=== PATIENT | male | born 1945 | race Caucasian/White ===

== ENCOUNTER 2016-08-11 16:33 | Observation (INO) | payer MEDICARE, BC, OTHER ==
[~2016-08-11] VITALS: Ht 185.4 cm; Wt 114.0 kg
[2016-08-11] VITALS (8 sets, daily range): BP systolic 139–188; BP diastolic 79–105; PULSE 60–86; RESP 16–20; TEMP 97.8–98.1; O2SAT 93–99
[~2016-08-11 16:33] MED LIST: ALLO300 PO; ASCO500C PO; BENI40TA31 PO; CARV3.125 PO; CPAP; LIPI40TA PO; PROT40TA PO; TAB-TAB PO; [UNRECOGNIZED DRUG - CODE] PO
[2016-08-11] MEDS ORDERED: ASPIRIN 81 MG CHEW TAB PO ONE (16:45)
[2016-08-11] MEDS: METOPROLOL TARTRATE 5 MG/5 ML VIAL IVS SCH ×4 (16:45→17:14)
[2016-08-11] MEDS ORDERED: NITROGLYCERIN 2% OINT 1 GM PACKET TOP ONE (16:45)
[2016-08-11] MEDS ORDERED: SODIUM CHLORIDE 0.9% FLUSH 5 ML FLUSH IVF PRN ×2 (16:45→18:30)
--- NOTE | 2016-08-11 16:54 | PD ---
HPI . Chest and upper back pain Chief Complaint: Chest Pain Time Seen by Provider: 16:42 Travel History International Travel<30 days: No Contact w/Intl Traveler<30days: No Traveled to known affect area: No History of Present Illness HPI Patient presents with chest and upper back pain which has been present for 1-1/2 -2 weeks. He states that it started after he had done some heavy yard work. He felt that it was muscular. He took ibuprofen with some relief of his symptoms. However, the symptoms have persisted and are no longer relieved by ibuprofen. He states that he has chest discomfort on a daily basis which waxes and wanes but does not go completely away. He also has pain in his upper back. He describes the upper back and upper chest pain as soreness but he describes the retrosternal chest pain is a heaviness. He denies any associated shortness of breath. He denies nausea, diaphoresis, paleness, dizziness. He does report poor appetite. He notes no exacerbating or relieving factors. PFSH Past Medical History Hx Anticoagulant Therapy: No Arthritis: Yes (HANDS, FEET, KNEES) Cardiovascular Problems: Yes (HTN, hyperlipidemia) High Cholesterol: Yes Chemotherapy: No Congestive Heart Failure: No COPD: Yes Cerebrovascular Accident: No Diabetes: No GERD: Yes Gout: Yes Genitourinary: No Hypertension: Yes Musculoskeletal: Yes Neurologic: No Respiratory: No Sleep Apnea: Yes Thyroid Disease: No Past Surgical History Abdominal Surgery: Yes (HERNIA REPAIR 49 YRS AGO) Oral Surgery: Yes (TONSILLECTOMY A CHILD) Social History Alcohol Use: Yes (SOCIALLY) Tobacco Use: No Substance Use: No Allergies-Medications (Allergen,Severity, Reaction): Coded Allergies: No Known Allergies (Verified , 01/17/14) Reported Meds & Prescriptions Reported Meds & Active Scripts Active Reported Vitamin E 400 Unit Cap 400 Units PO DAILY Multiple Vitamin 1 Tab 1 Tab PO DAILY Aspirin 325 Mg Tab 325 Mg PO DAILY Protonix (Pantoprazole Sodium) 40 Mg Tab 40 Mg PO EVERY OTHER DAY Benicar Hct (Olmesartan-Hydrochlorothiazide) 40-12.5 mg Tab 1 Tab PO DAILY Coreg (Carvedilol) 3.125 Mg Tab 3.125 Mg PO BID Lipitor (Atorvastatin Calcium) 40 Mg Tab 40 Mg PO HS Ascorbic Acid 500 Mg Tab 500 Mg PO DAILY Allopurinol 300 Mg Tab 300 Mg PO DAILY Review of Systems Except as stated in HPI: all other systems reviewed are Neg General / Constitutional: No: Fever, Chills Cardiovascular: Positive: Chest Pain or Discomfort, No: Diaphoresis, Syncope, Edema Respiratory: No: Cough, Shortness of Breath Gastrointestinal: No: Nausea, Vomiting, Diarrhea Neurologic: No: Weakness, Dizziness, Syncope Physical Exam Narrative GENERAL: This is a healthy-appearing older man who does not appear to be in distress. SKIN: Warm and dry. HEAD: Atraumatic. Normocephalic. EYES: Pupils equal and round. ENT: No nasal bleeding or discharge. Mucous membranes pink and moist. NECK: Trachea midline. Neck is supple. CARDIOVASCULAR: Regular rate and rhythm. Heart sounds are normal. RESPIRATORY: No accessory muscle use. Lungs are clear with full air movement throughout. GASTROINTESTINAL: Abdomen soft, non-tender, nondistended. MUSCULOSKELETAL: No obvious deformities. No edema. I am unable to elicit any upper chest or upper back tenderness. NEUROLOGICAL: Awake and alert. No obvious cranial nerve deficits. Motor grossly within normal limits. Normal speech. PSYCHIATRIC: Appropriate mood and affect; insight and judgment normal. Data Data Last Documented VS Vital Signs Date Time Temp Pulse Resp B/P Pulse Ox O2 Delivery O2 Flow Rate FiO2 08/11/16 17:25 60 16 139/84 95 Nasal Cannula 2 08/11/16 16:39 97.8 Orders Ckmb (Isoenzyme) Profile (08/11/16 16:42) Complete Blood Count With Diff (08/11/16 16:42) Comprehensive Metabolic Panel (08/11/16 16:42) Magnesium (Mg) (08/11/16 16:42) Prothrombin Time / Inr (Pt) (08/11/16 16:42) Act Partial Throm Time (Ptt) (08/11/16 16:42) Troponin I (08/11/16 16:42) Chest, Single Ap (08/11/16 16:42) Ecg Monitoring (08/11/16 16:42) Bilateral Bp Monitoring (08/11/16 16:42) Iv Access Insert/Monitor (08/11/16 16:42) Oximetry (08/11/16 16:42) Oxygen Administration (08/11/16 16:42) Aspirin Chew (Aspirin Chew) (08/11/16 16:45) Nitroglycerin 2% Oint (Nitroglycerin 2% (08/11/16 16:45) Sodium Chloride 0.9% Flush (Ns Flush) (08/11/16 16:45) Metoprolol Tartrate Inj (Lopressor Inj) (08/11/16 16:45) Morphine Inj (Morphine Inj) (08/11/16 17:45) Ondansetron Inj (Zofran Inj) (08/11/16 17:45) Admit Order (Ed Use Only) (08/11/16 18:18) Labs Laboratory Tests Test 08/11/16 17:00 White Blood Count 6.4 TH/MM3 Red Blood Count 4.53 MIL/MM3 Hemoglobin 14.1 GM/DL Hematocrit 41.1 % Mean Corpuscular Volume 90.7 FL Mean Corpuscular Hemoglobin 31.1 PG Mean Corpuscular Hemoglobin 34.3 % Concent Red Cell Distribution Width 13.2 % Platelet Count 245 TH/MM3 Mean Platelet Volume 9.1 FL Neutrophils (%) (Auto) 60.1 % Lymphocytes (%) (Auto) 28.5 % Monocytes (%) (Auto) 7.3 % Eosinophils (%) (Auto) 3.5 % Basophils (%) (Auto) 0.6 % Neutrophils # (Auto) 3.9 TH/MM3 Lymphocytes # (Auto) 1.8 TH/MM3 Monocytes # (Auto) 0.5 TH/MM3 Eosinophils # (Auto) 0.2 TH/MM3 Basophils # (Auto) 0.0 TH/MM3 CBC Comment DIFF FINAL Differential Comment Prothrombin Time 10.5 SEC Prothromb Time International 1.0 RATIO Ratio Activated Partial 25.7 SEC Thromboplast Time Sodium Level 141 MEQ/L Potassium Level 4.0 MEQ/L Chloride Level 105 MEQ/L Carbon Dioxide Level 25.8 MEQ/L Anion Gap 10 MEQ/L Blood Urea Nitrogen 26 MG/DL Creatinine 0.87 MG/DL Estimat Glomerular Filtration 86 ML/MIN Rate Random Glucose 92 MG/DL Calcium Level 9.3 MG/DL Magnesium Level 1.7 MG/DL Total Bilirubin 0.7 MG/DL Aspartate Amino Transf 14 U/L (AST/SGOT) Alanine Aminotransferase 26 U/L (ALT/SGPT) Alkaline Phosphatase 84 U/L Total Creatine Kinase 60 U/L Troponin I LESS THAN 0.02 NG/ML Total Protein 7.4 GM/DL Albumin 4.0 GM/DL MDM Medical Decision Making Medical Screen Exam Complete: Yes Emergency Medical Condition: Yes Medical Record Reviewed: Yes (patient had a Lexiscan stress test in January 2014 which was negative.) Interpretation(s) EKG shows a sinus rhythm. No ST segment elevation or depression. Differential Diagnosis Differential diagnosis of chest pain includes but is not limited to musculoskeletal pain, pulmonary embolism, acute coronary syndrome, pneumonia, pleurisy Narrative Course Patient presents for the evaluation of chest pain which has been ongoing for approximately 2 weeks. He does state that it waxes and wanes. If this patient's initial evaluation is negative, he needs to be further evaluated in the chest pain center. Last Impressions Chest X-Ray 08/11/16 1642 Signed Impressions: Service Date/Time: Thursday, August 11, 2016 16:50 - CONCLUSION: Normal examination. Dilan Avalos MD The chest x-ray was independently viewed by me. CBC & BMP Diagram 08/11/16 17:00 Cardiac enzymes are negative. Patient reports that his pain is significantly improved with aspirin, oxygen and Nitropaste. I will have him admitted to the chest pain center. Diagnosis Primary Impression: Chest pain Qualified Code: R07.9 - Chest pain, unspecified type Admitting Information Admitting Physician Requests: Observation Condition: Stable Carito Barney MD Aug 11, 2016 16:53
--- NOTE | 2016-08-11 16:58 | RADHPO ---
EXAM DATE/TIME: 08/11/2016 16:50 [facility] COMPARISON: CHEST SINGLE AP, January 16, 2014, 23:33. INDICATIONS : Chest pain for two weeks. No injury. MEDICAL HISTORY : Hypertension. SURGICAL HISTORY : None. ENCOUNTER: Initial ACUITY: 2 weeks PAIN SCORE: 5/10 LOCATION: Bilateral upper chest FINDINGS: A single view of the chest demonstrates the lungs to be symmetrically aerated without evidence of mas s, infiltrate or effusion. The cardiomediastinal contours are unremarkable. Osseous structures are intact. CONCLUSION: Normal examination. Dilan Avalos MD on August 11, 2016 at 16:57 Board Certified Radiologist. This report was verified electronically.
[2016-08-11 17:06] LABS: AUTOMATED NEUTROPHIL # 3.9 TH/MM3 (1.8-7.7); BASOPHIL % 0.6 % (0.0-2.0); EOSINOPHIL # 0.2 TH/MM3 (0-0.4); EOSINOPHIL % 3.5 % (0.0-4.0); HEMATOCRIT 41.1 % (39.0-51.0); HEMO FLAGS DIFF FINAL; LYMPH % 28.5 % (9.0-44.0); LYMPHOCYTE # 1.8 TH/MM3 (1.0-4.8); MEAN CELL VOLUME 90.7 FL (80.0-100.0); MEAN CORPUSCULAR HEMOGLOBIN 31.1 PG (27.0-34.0); MEAN CORPUSCULAR HGB CONC 34.3 % (32.0-36.0); MONO % 7.3 % (0.0-8.0); NEUT % 60.1 % (16.0-70.0); PLATELET COUNT 245 TH/MM3 (150-450); RED BLOOD COUNT 4.53 MIL/MM3 (4.50-5.90); RED CELL DISTRIBUTION WIDTH 13.2 % (11.6-17.2); WHITE BLOOD COUNT 6.4 TH/MM3 (4.0-11.0)
[2016-08-11 17:15] LABS: CHLORIDE 105 MEQ/L (98-107); SODIUM (NA) 141 MEQ/L (136-145)
[2016-08-11 17:19] LABS: ANION GAP 10 MEQ/L (5-15); BICARBONATE 25.8 MEQ/L (21.0-32.0); BLOOD UREA NITROGEN 26 MG/DL (7-18); MAGNESIUM 1.7 MG/DL (1.5-2.5)
[2016-08-11 17:20] LABS: APTT (PATIENT) 25.7 SEC (24.3-30.1); PROTHROMBIN TIME - PATIENT 10.5 SEC (9.8-11.6)
[2016-08-11 17:22] LABS: ALT (GPT) 26 U/L (12-78); AST (GOT) 14 U/L (15-37)
[2016-08-11 17:23] LABS: GLOMERULAR FILTRATION RATE 86 ML/MIN (>89)
[2016-08-11 17:24] LABS: TOTAL BILIRUBIN ADULT 0.7 MG/DL (0.2-1.0)
[2016-08-11 17:25] LABS: ALKALINE PHOSPHATASE 84 U/L (45-117)
[2016-08-11 17:34] LABS: CREATINE KINASE 60 U/L (39-308)
[2016-08-11] MEDS ORDERED: ONDANSETRON HCL 4 MG/2 ML VIAL IVP ONE (17:45)
[2016-08-11] MEDS ORDERED: MORPHINE SULFATE 4 MG/ML INJ IV ONE (17:45)
[2016-08-11] MEDS ORDERED: ALLO300T2 PO (18:00)
[2016-08-11] MEDS ORDERED: ASCO500T PO (18:01)
[2016-08-11] MEDS ORDERED: CARV3.125 PO (18:03)
[2016-08-11] MEDS ORDERED: LIPI40TA PO (18:03)
[2016-08-11] MEDS ORDERED: BENI40TA5 PO (18:04)
[2016-08-11] MEDS ORDERED: PROT40TA PO (18:05)
[2016-08-11] MEDS ORDERED: MULTTAB67 PO (18:06)
[2016-08-11] MEDS ORDERED: ASPI325T PO (18:06)
[2016-08-11] MEDS ORDERED: VITA400C2 PO (18:07)
[2016-08-11] MEDS ORDERED: ONDANSETRON HCL 4 MG/2 ML VIAL IV PRN (18:30)
[2016-08-11] MEDS ORDERED: ACETAMINOPHEN 500 MG CPLT PO PRN (18:30)
[2016-08-11 20:42] LABS: CREATINE KINASE 52 U/L (39-308)
[2016-08-11] MEDS ORDERED: ATORVASTATIN 40 MG TAB PO SCH (21:00)
[2016-08-11] MEDS: CARVEDILOL 3.125 MG TAB PO SCH (22:00)
[2016-08-11] MEDS: SODIUM CHLORIDE 0.9% FLUSH 5 ML FLUSH IVF SCH (22:00)
[2016-08-11 23:11] LABS: CREATINE KINASE 53 U/L (39-308)
[2016-08-12] VITALS: BP 137/99; PULSE 88; RESP 20; TEMP 98.4; O2SAT 95
[2016-08-12 04:00] VITALS: BP 151/87; PULSE 69; RESP 20; TEMP 97.6; O2SAT 93
[2016-08-12 07:30] VITALS: O2SAT 92
[2016-08-12 08:00] VITALS: BP 148/89; PULSE 59; PULSE 69; RESP 20; TEMP 97; O2SAT 94
[2016-08-12] MEDS: CARVEDILOL 3.125 MG TAB PO SCH (09:00)
[2016-08-12] MEDS ORDERED: PANTOPRAZOLE SOD 40 MG DELAYED RELEASE TAB PO SCH (09:00)
[2016-08-12] MEDS ORDERED: HYDROCHLOROTHIAZIDE 12.5 MG CAP PO SCH (09:00)
[2016-08-12] MEDS ORDERED: LOSARTAN 50 MG TAB PO SCH (09:00)
[2016-08-12] MEDS ORDERED: ALLOPURINOL 300 MG TAB PO SCH (09:00)
[2016-08-12] MEDS ORDERED: ASPIRIN 325 MG TAB PO SCH (09:00)
[2016-08-12] MEDS: SODIUM CHLORIDE 0.9% FLUSH 5 ML FLUSH IVF SCH (09:09)
--- NOTE | 2016-08-12 10:15 | EKG ---
Date Performed: 08/11/2016 Time Performed: 22:16:08 PTAGE: 71 years EKG: Sinus rhythm with PAC(s). Left axis deviation rSr'(V1) - probable normal variant Possible anterior infarct - age undetermined Abnormal ECG PREVIOUS TRACING : 08/11/2016 19.53 DOCTOR: Dilan Edge Interpretating Date/Time 08/12/2016 10:13:43
--- NOTE | 2016-08-12 10:40 | EKG ---
Date Performed: 08/11/2016 Time Performed: 19:53:28 PTAGE: 71 years EKG: Sinus rhythm . Leftward axis rSr'(V1) - probable normal variant Poor R wave progression - probable normal variant Anterior T wave changes are nonspecific Borderline ECG PREVIOUS TRACING : 08/11/2016 16.33 DOCTOR: Dilan Edge Interpretating Date/Time 08/12/2016 10:39:43
--- NOTE | 2016-08-12 10:42 | HHI.HP ---
[facility] Service [facility] Primary Care Physician Shanelle Alva M.D. Admission Diagnosis chest pain Diagnoses: (1) Chest pain Diagnosis: Principal (2) Hypertension Diagnosis: Secondary (3) Hyperlipidemia Diagnosis: Secondary (4) Family history of heart disease Diagnosis: Secondary Chief Complaint: Chest pain Travel History International Travel<30 Days: No Contact w/Intl Traveler <30 Da: No Traveled to Known Affected Are: No History of Present Illness 71-year-old male with known history of hypertension, hyperlipidemia, obstructive sleep apnea, gastroesophageal reflux, history of tobacco use presents for evaluation of chest pain. Patient states that he been experiencing upper anterior chest pain radiating over her shoulders into his back for 1-1/2 weeks. States that the pain started after he cut down a tree. He did use ibuprofen for the first 3 days with minimal relief. The pain has remained constant up to a 5/10 on a pain scale without any associated nausea, vomiting, diaphoresis, shortness of breath, dyspnea, dizziness. Patient did not attempt to contact his real estate branch manager or primary medical doctor for evaluation. Because the pain did not go away he came to emergency department for evaluation. Patient workup done emergency department is recommended patient be observed and chest pain center for further evaluation. Patient's primary real estate branch manager Dr. Barrow. He states that he has not seen his real estate branch manager since his last time he was admitted to the hospital for chest pain center back in 2013. Will need contact patient's real estate branch manager for further recommendations. Review of Systems Constitutional: DENIES: Diaphoretic episodes, Fatigue, Fever, Weight gain, Weight loss, Chills, Dizziness, Change in appetite, Night Sweats Eyes: DENIES: Blurred vision, Diplopia, Eye inflammation, Eye pain, Vision loss , Double Vision Ears, nose, mouth, throat: DENIES: Vertigo, Nasal discharge, Throat pain, Ear Pain, Running Nose, Sinus Pain Respiratory: DENIES: Apneas, Cough, Snoring, Wheezing, Hemoptysis, Sputum production, Shortness of breath Cardiovascular: COMPLAINS OF: Chest pain, DENIES: Palpitations, Syncope, Dyspnea on Exertion, Lower Extremity Edema, Orthopnea Gastrointestinal: DENIES: Abdominal pain, Black stools, Bloody stools, Constipation, Diarrhea, Nausea, Vomiting, Difficulty Swallowing, Anorexia Neurologic: DENIES: Abnormal gait, Headache, Localized weakness, Paresthesias, Seizures, Speech Problems, Tremor, Poor Balance Psychiatric: COMPLAINS OF: Homicidal Ideation, DENIES: Anxiety, Confusion, Mood changes, Depression Past Family Social History Past Medical History Hypertension Hyperlipidemia Obstructive sleep apnea Gastroesophageal reflux History tobacco use Past Surgical History Tonsillectomy Right inguinal hernia repair Reported Medications Reported Meds & Active Scripts Active Reported Vitamin E 400 Unit Cap 400 Units PO DAILY Multiple Vitamin 1 Tab 1 Tab PO DAILY Aspirin 325 Mg Tab 325 Mg PO DAILY Protonix (Pantoprazole Sodium) 40 Mg Tab 40 Mg PO EVERY OTHER DAY Benicar Hct (Olmesartan-Hydrochlorothiazide) 40-12.5 mg Tab 1 Tab PO DAILY Coreg (Carvedilol) 3.125 Mg Tab 3.125 Mg PO BID Lipitor (Atorvastatin Calcium) 40 Mg Tab 40 Mg PO HS Ascorbic Acid 500 Mg Tab 500 Mg PO DAILY Allopurinol 300 Mg Tab 300 Mg PO DAILY Allergies: Coded Allergies: No Known Allergies (Verified , 01/17/14) Family History Patient states that his father from myocardial infarction Social History Patient was smoking 18 years ago prior to that he smoked 2 packs of cigarettes a day for 20 years. Denies any illicit drugs. Does use alcohol occasionally Physical Exam Vital Signs Vital Signs Date Time Temp Pulse Resp B/P Pulse Ox O2 Delivery O2 Flow Rate FiO2 08/12/16 08:00 69 08/12/16 08:00 97.0 59 20 148/89 94 08/12/16 07:30 92 Nasal Cannula 2.00 08/12/16 04:00 97.6 69 20 151/87 93 08/12/16 00:00 98.4 88 20 137/99 95 Manual Cuff/Auscultation 08/11/16 22:21 95 Nasal Cannula 2.00 08/11/16 20:16 66 08/11/16 20:15 98.1 63 20 153/86 99 08/11/16 20:12 18 96 Nasal Cannula 2 08/11/16 19:00 64 18 96 Nasal Cannula 2 08/11/16 19:00 64 18 145/79 96 Nasal Cannula 2 08/11/16 17:25 60 16 139/84 95 Nasal Cannula 2 08/11/16 17:19 60 97 Nasal Cannula 2 08/11/16 16:39 97.8 86 18 183/105 93 08/11/16 16:33 95 Nasal Cannula 2 08/11/16 16:33 183/105 188/102 08/11/16 16:33 18 95 Nasal Cannula 2 Physical Exam GENERAL: Well-developed, well-nourished, in no acute distress. alert and orientated HEENT: Head is normocephalic without any lesions or masses noted. Facial features are symmetric. Eyes: Pupils equal round reactive to light. Extraocular muscles are intact. Conjunctivae were clear. Oropharyngeal: Pharynx without any erythema edema. Tongue is midline without deviation. Buccal mucosa is moist without any masses or lesions NECK: Supple without any masses. Trachea midline no deviation. No JVD, no bruits are appreciated CARDIAC: Regular rhythm, regular rate. S1/S2 are heard. No murmurs gallops or rubs. LUNGS: Clear to auscultation bilaterally. No wheeze, rhonchi or rales. No use of accessory muscles on inspiration or expiration. ABDOMEN: Soft, nontender. Nondistended. Bowel sounds heard in all 4 quadrants. No organomegaly or masses. Negative rebound, negative guarding EXTREMITIES: No edema, pulses are equal bilaterally. No cyanosis or clubbing NEUROLOGY: Mood and affect appear appropriate. Cranial nerves II through XII grossly intact. Muscle strength 5/5 in upper and lower extremities bilaterally. Deep tendon reflexes are 2+ in upper and lower extremities bilaterally. Laboratory Laboratory Tests Test 08/11/16 08/11/16 08/11/16 17:00 19:55 22:25 White Blood Count 6.4 Red Blood Count 4.53 Hemoglobin 14.1 Hematocrit 41.1 Mean Corpuscular Volume 90.7 Mean Corpuscular Hemoglobin 31.1 Mean Corpuscular Hemoglobin 34.3 Concent Red Cell Distribution Width 13.2 Platelet Count 245 Mean Platelet Volume 9.1 Neutrophils (%) (Auto) 60.1 Lymphocytes (%) (Auto) 28.5 Monocytes (%) (Auto) 7.3 Eosinophils (%) (Auto) 3.5 Basophils (%) (Auto) 0.6 Neutrophils # (Auto) 3.9 Lymphocytes # (Auto) 1.8 Monocytes # (Auto) 0.5 Eosinophils # (Auto) 0.2 Basophils # (Auto) 0.0 CBC Comment DIFF FINAL Differential Comment Prothrombin Time 10.5 Prothromb Time International 1.0 Ratio Activated Partial 25.7 Thromboplast Time Sodium Level 141 Potassium Level 4.0 Chloride Level 105 Carbon Dioxide Level 25.8 Anion Gap 10 Blood Urea Nitrogen 26 Creatinine 0.87 Estimat Glomerular Filtration 86 Rate Random Glucose 92 Calcium Level 9.3 Magnesium Level 1.7 Total Bilirubin 0.7 Aspartate Amino Transf 14 (AST/SGOT) Alanine Aminotransferase 26 (ALT/SGPT) Alkaline Phosphatase 84 Total Creatine Kinase 60 52 53 Troponin I LESS THAN 0.02 LESS THAN 0.02 LESS THAN 0.02 Total Protein 7.4 Albumin 4.0 Result Diagram: 08/11/16 1700 08/11/16 1700 Imaging Last Impressions Chest X-Ray 08/11/16 1642 Signed Impressions: Service Date/Time: Thursday, August 11, 2016 16:50 - CONCLUSION: Normal examination. Dilan Avalos MD Assessment and Plan Assessment and Plan Chest pain, atypical Patient with increased risk factors to include age, male, hypertension, hyperlipidemia, tobacco use, family history of heart disease Patient has been ruled out for acute coronary event with serial cardiac enzymes were normal Serial EKGs were performed which did not indicate any significant changes. Telemetry was monitored without any changes. We'll try to contact patient's real estate branch manager Dr. Grace andrea for further recommendations Continue aspirin, beta arsalan, statin, ARB Hypertension Continued home medications Hyperlipidemia Continued home medications Obstructive sleep apnea Patient is using his own CPAP DVT prevention Low risk, early ambulation Written by Jayden Vergara PA-C, acting as scribe for Dr. García on 08/12/16 at 1020. The documentation accurately reflects the work and decisions performed face-to- face by Dr. Joseph on 08/12/16 at 1020. Discharge disposition Discharge home in stable condition Activity: Ad yesenia. Diet: Healthy heart diet Medications per medication reconciliation Follow-up primary medical doctor in one week Medical Decision Making Impression and Plan Patient with atypical chest pain and risk factors, follow-up imaging/ stress test The exam, history, and the medical decision-making described in the above note were completed with my assistance as the dictating practitioner. I attest that I had a [id number] encounter with the patient on the same day, and personally performed all of the history, exam, or medical decision making. I reviewed and agree with the plan. Problem Qualifiers (1) Chest pain: Qualified Code: R07.9 - Chest pain, unspecified type (2) Hypertension: Qualified Code: I15.9 - Secondary hypertension (3) Hyperlipidemia: Qualified Code: E78.5 - Hyperlipidemia, unspecified hyperlipidemia type Jayden Vergara Aug 12, 2016 10:42 Genesis García MD Aug 12, 2016 14:16
--- NOTE | 2016-08-12 11:06 | EKG ---
Date Performed: 08/11/2016 Time Performed: 16:33:52 PTAGE: 71 years EKG: Possible ectopic atrial rhythm. Left axis deviation rSr'(V1) - probable normal variant Poss ible anterior infarct - age undetermined Abnormal ECG PREVIOUS TRACING : 01/17/2014 05.19 DOCTOR: Dilna Edge Interpretating Date/Time 08/12/2016 11:03:55
[2016-08-12 12:00] VITALS: BP 139/85; PULSE 58; RESP 20; TEMP 97.1; O2SAT 96
[2016-08-12] MEDS ORDERED: REGADENOSON INJ 0.4 MG/5 ML SYR IV ONE (13:38)
--- NOTE | 2016-08-12 15:23 | RADHPO ---
EXAM DATE/TIME: 08/12/2016 13:58 [facility] COMPARISON: MYOCARDIAL PERF PHARM SPECT, GATED W/EF, January 17, 2014, 10:37. INDICATIONS : Substernal chest pain radiating to back. Angina. DOSE: 35 mCi Tc99m Myoview at stress. 11 mCi Tc99m Myoview at rest. 0.4 mg Lexiscan STRESS SYMPTOMS: Asymptomatic. EJECTION FRACTION: 70% MEDICAL HISTORY : Hypertension. Gastroesophageal reflux disease. SURGICAL HISTORY : Inguinal hernia repair. Tonsillectomy. ENCOUNTER: Initial ACUITY: 1 week PAIN SCALE: 5/10 LOCATION: Substernal chest TECHNIQUE: The patient underwent pharmacologic stress with infusion of prescribed dose. Continuous ECG tracing was monitored during stress. Gated SPECT imaging was performed after stress and conventional SPECT i maging was performed at rest. The examination was performed on a SPECT/CT scanner, both attenuation and non-corrected datasets were reviewed. FINDINGS: DISTRIBUTION: The maximum perfused segment at stress is in the septal wall. PERFUSION STUDY: The pattern of perfusion at stress is within normal limits. GATED STUDY: There is intact wall motion and thickening without hypokinetic or dyskinetic segments. CONCLUSION: 1. No reversible perfusion defect to suggest stress-induced myocardial ischemia identified. RISK CATEGORY: Low (<1% Annual Mortality Rate) Oscar Kumar MD on August 12, 2016 at 15:21 Board Certified Radiologist. This report was verified electronically.
--- NOTE | 2016-08-12 15:30 | HHI.DCPOC ---
Discharge Care Plan Diagnosis: (1) Chest pain Goals to Promote Your Health * To prevent worsening of your condition and complications * To maintain your health at the optimal level Directions to Meet Your Goals Take your medications as prescribed Follow your dietary instruction Follow activity as directed Keep your appointments as scheduled Take your immunizations and boosters as scheduled If your symptoms worsen call your PCP, if no PCP go to Urgent Care Center or Emergency Room Smoking is Dangerous to Your Health. Avoid second hand smoke Call the 24-hour hour crisis hotline for domestic abuse at Jayden Vergara Aug 12, 2016 15:30 Genesis García MD Aug 12, 2016 16:46
--- NOTE | 2016-08-13 21:33 | TR ---
Date Performed: 08/12/2016 Time Performed: 14:02:39 DOCTOR: Jessica Rosas DRUG LIST: CLINICAL HISTORY: CHEST PAIN REASON FOR TEST: Chest pain WITH ABNORMAL EKG REASON FOR ENDING: OBSERVATION: CONCLUSION: Lexiscan stress test was performed under standard four minute protocol. Radionuclid e was injected one minute prior to ending the test. No electrocardiographic abormalities were present to suggest ischemia. Nuclear imaging and interpretation are pending. COMMENTS:
== END 2016-08-12 16:32 | disposition home or self-care (01) ==
LOC: PHED 16:33 → PHEDA 18:19 → PH3B 20:04
PROVIDERS: ADMIT Hospitalist; ATTEND Hospitalist
DX: R07.9 Chest pain, unspecified (principal); M54.9 Dorsalgia, unspecified; R63.0 Anorexia; E78.5 Hyperlipidemia, unspecified; E78.00 Pure hypercholesterolemia, unspecified; J44.9 Chronic obstructive pulmonary disease, unspecified; K21.9 Gastro-esophageal reflux disease without esophagitis; M10.9 Gout, unspecified; I10 Essential (primary) hypertension; Z79.899 Other long term (current) drug therapy; Z82.49 Family history of ischemic heart disease and other diseases of the circulatory system; G47.33 Obstructive sleep apnea (adult) (pediatric); Z87.891 Personal history of nicotine dependence; R94.31 Abnormal electrocardiogram [ECG] [EKG]
CPT/HCPCS: 71010; 78452; 80053; 82550; 83735; 84484; 85025; 85610; 85730; 93005; 93017; 99285; A9502; G0378; J2785

== ENCOUNTER 2018-06-20 09:33 | Observation (INO) ==
--- NOTE | 2018-06-20 10:05 | ED ---
HPI General Chief Complaint: Chest Pain Stated Complaint: C/P AND LOWER/UPPER BACK X 1 WK Time Seen by Provider: 06/20/18 09:45 History of Present Illness HPI narrative: This is a 73-year-old male with history of hypertension, dyslipidemia, gout, who presents today with complaints of chest pain. Patient states about a week ago it started in his low back. He states it started over his right lower hip. He says it then radiated to his left upper back. He states over the last couple days he has had pain across his chest on the anterior side. He denies any nausea or diaphoresis. He denies any shortness of breath. He states the pain is an achy pain. He reports it is a 6-7 on the pain scale at worst. He states when he lays flat at night it is better however during the day is when he notices it. He is never had any heart issues that he is aware of. He states he had outpatient x-rays for his back pain. His doctor stated that he may have problems with his back and that he should go to the ER if he has any further issues. He states he came here today because of the anterior chest pain. Related Data Home Medications Medication Instructions Recorded Confirmed allopurinol [Zyloprim] 300 mg PO QPM 06/20/18 06/20/18 ascorbic acid (vitamin C) [Vitamin 500 mg PO DAILY 06/20/18 06/20/18 C] aspirin 325 mg PO HS 06/20/18 06/20/18 atorvastatin [Lipitor] 40 mg PO QPM 06/20/18 06/20/18 carvedilol [Coreg] 3.125 mg PO BID 06/20/18 06/20/18 multivitamin 1 tab PO DAILY 06/20/18 06/20/18 olmesartan-hydrochlorothiazide 1 tab PO DAILY 06/20/18 06/20/18 [Benicar HCT] pantoprazole [Protonix] 40 mg PO DAILY 06/20/18 06/20/18 vitamin E 400 unit PO DAILY 06/20/18 06/20/18 Allergies Allergy/AdvReac Type Severity Reaction Status Date / Time No Known Allergies Allergy Verified 06/20/18 09:43 Review of Systems ROS: all other systems reviewed are negative Constitutional Reports system reviewed and no additional complaints, except as docu Eyes Reports system reviewed and no additional complaints, except as docu ENT Reports system reviewed and no additional complaints, except [facility] Cardiovascular Reports chest pain, Denies diaphoresis and Denies dyspnea Respiratory Denies cough and Denies dyspnea Gastrointestinal Denies abdominal pain, Denies nausea, Denies vomiting and Reports other ( Patient reports she has chronic indigestion/stomach issues. Nothing new.) Genitourinary Reports system reviewed and no additional complaints, except as [facility] Musculoskeletal Reports back pain (Left upper back and right lower lateral hip), Denies neck pain, Denies numbness and Denies tingling Neurologic Reports system reviewed and no additional complaints, except as [facility] Medical History Medical History History of gastroesophageal reflux (GERD) (Acute) History of gout (Acute) History of high cholesterol (Acute) History of hypertension (Acute) History of sleep apnea (Acute) Surgical History Surgical History History of hernia repair (Acute) History of tonsillectomy (Acute) Social History Social History Substance History: No History of Abuse Smoking Status: Former smoker How Often Do You Have a Drink Containing Alcohol: 2 to 4 times a month Recent Travel in [facility] within the Last 8 Weeks: No Recent Out of Country Travel within the Last 8 Weeks: No Exam Narrative Exam Narrative: GENERAL: Well-developed well-nourished male in no acute respiratory distress. SKIN: Focused skin assessment warm/dry. HEAD: Atraumatic. Normocephalic. EYES: Pupils equal and round. No scleral icterus. No injection or drainage. ENT: No nasal bleeding or discharge. Mucous membranes pink and moist. NECK: Trachea midline. Supple with no JVD. CARDIOVASCULAR: Sinus bradycardia with a rate in the 50s. No murmur appreciated. RESPIRATORY: No accessory muscle use. Clear to auscultation. Breath sounds equal bilaterally. GASTROINTESTINAL: Abdomen soft, non-tender, nondistended. No pulsatile masses. MUSCULOSKELETAL: No obvious deformities. No clubbing. No cyanosis. No edema. NEUROLOGICAL: Awake and alert. No obvious cranial nerve deficits. Motor grossly within normal limits. Normal speech. Course Initial Documented Vital Signs Temperature 98.0 F 06/20/18 09:36 Pulse Rate 60 06/20/18 09:36 Respiratory Rate 18 06/20/18 09:36 Blood Pressure 160/82 H 06/20/18 09:36 Pulse Oximetry 96 06/20/18 09:36 Last Documented Vital Signs Temperature 98.0 F 06/20/18 09:36 Pulse Rate 50 L 06/20/18 13:10 Respiratory Rate 18 06/20/18 13:31 Blood Pressure 148/76 H 06/20/18 13:10 Pulse Oximetry 96 06/20/18 13:10 Medical Decision Making MDM Narrative Medical decision making narrative: This is a 73-year-old male with a history of hypertension, dyslipidemia, gout, presents today with complaints of back and chest pain. Patient states it started in his lower right hip/iliac crest area. He states that then radiated up to his left upper back. He had outpatient x- rays done that showed some degenerative changes. His doctor told him if he had recurrent issues he should come here. The patient states that what brought him here today was that the started experiencing anterior chest pain. EKG shows no evidence of acute findings. Cardiac enzymes are within normal limits. Given the patient's history, he will be admitted for rule out protocol. Case was discussed with Dr. Tijerina, [place] [place] [facility]. Medical Screen Exam Complete: Yes Emergency Medical Condition: Yes Differential Diagnosis Differential Diagnosis: ACS versus peptic ulcer disease versus musculoskeletal pain Lab Data Result diagrams: 06/20/18 10:08 06/20/18 10:08 Lab Results 06/20/18 06/20/18 06/20/18 Range/Units 10:08 10:08 10:08 CBC w Diff Auto diff final WBC 4.9 (4.0-11.0) th/mm3 RBC 4.37 L (4.50-5.90) mil/mm3 Hgb 13.6 (13.0-17.0) gm/dL Hct 40.8 (39.0-51.0) % MCV 93.4 (80.0-100.0) fL MCH 31.2 (27.0-34.0) pg MCHC 33.4 (32.0-36.0) % RDW 12.6 (11.6-17.2) % Plt Count 249 (150-450) th/mm3 MPV 8.5 (7.0-11.0) fL Neut % (Auto) 53.0 (16.0-70.0) % Lymph % (Auto) 34.6 (9.0-44.0) % [place] % (Auto) 8.1 H (0.0-8.0) % Eos % (Auto) 3.8 (0.0-4.0) % Baso % (Auto) 0.5 (0.0-2.0) % Neut # (Auto) 2.6 (1.8-7.7) th/mm3 Lymph # (Auto) 1.7 (1.0-4.8) th/mm3 [place] # (Auto) 0.4 (0.0-0.9) th/mm3 Eos # (Auto) 0.2 (0.0-0.4) th/mm3 Baso # (Auto) 0.0 (0.0-0.2) th/mm3 WBC Differential . Differential Comment . Sodium 141 (136-145) meq/L Potassium 4.0 (3.5-5.1) meq/L Chloride 107 (98-107) meq/L Carbon Dioxide 28.2 (21.0-32.0) meq/L Anion Gap 6 (5-15) meq/L BUN 46 H (7-18) mg/dL Creatinine 1.20 (0.60-1.30) mg/dL Estimated GFR 59 L (>89) mL/min Random Glucose 102 (74-106) mg/dL Calcium 9.3 (8.5-10.1) mg/dL Total Bilirubin 0.6 (0.2-1.0) mg/dL AST 18 (15-37) U/L ALT 31 (12-78) U/L Alkaline Phosphatase 82 (45-117) U/L Total Creatine Kinase 40 (39-308) U/L Troponin I Less than 0.02 L (0.02-0.05) ng/mL Total Protein 7.3 (6.4-8.2) g/dL Albumin 3.7 (3.4-5.0) g/dL 06/20/18 Range/Units 12:42 CBC w Diff WBC (4.0-11.0) th/mm3 RBC (4.50-5.90) mil/mm3 Hgb (13.0-17.0) gm/dL Hct (39.0-51.0) % MCV (80.0-100.0) fL MCH (27.0-34.0) pg MCHC (32.0-36.0) % RDW (11.6-17.2) % Plt Count (150-450) th/mm3 MPV (7.0-11.0) fL Neut % (Auto) (16.0-70.0) % Lymph % (Auto) (9.0-44.0) % [place] % (Auto) (0.0-8.0) % Eos % (Auto) (0.0-4.0) % Baso % (Auto) (0.0-2.0) % Neut # (Auto) (1.8-7.7) th/mm3 Lymph # (Auto) (1.0-4.8) th/mm3 [place] # (Auto) (0.0-0.9) th/mm3 Eos # (Auto) (0.0-0.4) th/mm3 Baso # (Auto) (0.0-0.2) th/mm3 WBC Differential Differential Comment Sodium (136-145) meq/L Potassium (3.5-5.1) meq/L Chloride (98-107) meq/L Carbon Dioxide (21.0-32.0) meq/L Anion Gap (5-15) meq/L BUN (7-18) mg/dL Creatinine (0.60-1.30) mg/dL Estimated GFR (>89) mL/min Random Glucose (74-106) mg/dL Calcium (8.5-10.1) mg/dL Total Bilirubin (0.2-1.0) mg/dL AST (15-37) U/L ALT (12-78) U/L Alkaline Phosphatase (45-117) U/L Total Creatine Kinase 35 L (39-308) U/L Troponin I Less than 0.02 L (0.02-0.05) ng/mL Total Protein (6.4-8.2) g/dL Albumin (3.4-5.0) g/dL Imaging Data Radiologist's impression: Chest X-Ray 06/20/18 09:45 CONCLUSION: The lungs are clear. Discharge Plan Discharge Disposition Patient Disposition: ED Admit(ED Internal Use Only) Discharge Order Discharge Orders: ED Use Only Admit Order (Routine); Ordered 06/20/18 Ordered By: Roscoe Moncada Discharge Details Diagnosis: Atypical chest pain, Back pain, Hip pain, right Physicians Team ED Provider: Roscoe Moncada Primary Care Provider: Shanelle Alva Attending Provider: Yoana Castillo Discharge Interventions Interventions: ED Discharge Assessment Last Done: 06/20/18 14:58 Status ED Status: Admitted Observation Patient
[2018-06-20 10:19] LABS: Baso % (Auto) 0.5 % (0.0-2.0); Eos # (Auto) 0.2 th/mm3 (0.0-0.4); Eos % (Auto) 3.8 % (0.0-4.0); Hematocrit 40.8 % (39.0-51.0); Hemoglobin 13.6 gm/dL (13.0-17.0); Lymph # (Auto) 1.7 th/mm3 (1.0-4.8); Lymph % (Auto) 34.6 % (9.0-44.0); Mean Corpuscular HGB Conc 33.4 % (32.0-36.0); Mean Corpuscular Hemoglobin 31.2 pg (27.0-34.0); Mean Corpuscular Volume 93.4 fL (80.0-100.0); Mean Platelet Volume 8.5 fL (7.0-11.0); Mono # (Auto) 0.4 th/mm3 (0.0-0.9); Mono % (Auto) 8.1 % (0.0-8.0); Neut # (Auto) 2.6 th/mm3 (1.8-7.7); Platelet Count 249 th/mm3 (150-450); Red Blood Count 4.37 mil/mm3 (4.50-5.90); Red Cell Distribution Width 12.6 % (11.6-17.2); White Blood Count 4.9 th/mm3 (4.0-11.0)
[2018-06-20 10:24] LABS: Chloride 107 meq/L (98-107); Sodium 141 meq/L (136-145)
--- NOTE | 2018-06-20 10:26 | XR ---
EXAM DATE: 06/20/2018 10:18 AM EST AGE/SEX: 73 years / Male INDICATIONS: Chest pain. CLINICAL DATA: This is the patient's initial encounter. Patient reports that signs and symptoms have been present for 3 weeks and indicates a pain score of 4/10. MEDICAL/SURGICAL HISTORY: Hypertension. None. COMPARISON: [facility], CHEST SINGLE AP, 08/11/2016. . FINDINGS: A single AP view of the chest demonstrates the lungs to be symmetrically aerated without evidence of mass, infiltrate or effusion. The cardiomediastinal contours are unremarkable. Osseous structures a re intact. CONCLUSION: The lungs are clear. Electronically signed by: Micah Patel MD Board Certified Radiologist 06/20/2018 10:25 AM EST
[2018-06-20 10:27] LABS: Calcium 9.3 mg/dL (8.5-10.1)
[2018-06-20 10:28] LABS: Albumin 3.7 g/dL (3.4-5.0); Anion Gap 6 meq/L (5-15); Blood Urea Nitrogen 46 mg/dL (7-18); Carbon Dioxide 28.2 meq/L (21.0-32.0); Glucose,Random 102 mg/dL (74-106)
[2018-06-20 10:31] LABS: Alanine Aminotransferase 31 U/L (12-78); Aspartate Aminotransferase 18 U/L (15-37); Glomerular Filtration Rate 59 mL/min (>89)
[2018-06-20 10:33] LABS: Total Protein 7.3 g/dL (6.4-8.2)
[2018-06-20 10:34] LABS: Alkaline Phosphatase 82 U/L (45-117)
[2018-06-20] MEDS ORDERED: Sod Chloride 0.9% Inj 1,000 ML IV.SIG SCH (11:45)
[2018-06-20] MEDS ORDERED: Acetaminophen 500 MG Tablet PO PRN (12:01)
[2018-06-20] MEDS ORDERED: Morphine Inj 4 MG/ML Vial IV.PUSH PRN (12:01)
[2018-06-20 13:29] LABS: Creatine Kinase 35 U/L (39-308)
[2018-06-20 13:33] VITALS: O2SAT 96
[2018-06-20] MEDS ORDERED: Regadenoson Inj 0.4 MG/5 ML Syringe IV.PUSH ONE ×2 (15:27→17:38)
[2018-06-20 16:19] VITALS: PULSE 55
[2018-06-20 16:40] LABS: Creatine Kinase 38 U/L (39-308)
--- NOTE | 2018-06-20 17:55 | P.HPIM ---
History of Present Illness Primary Care Physician: Shanelle Alva Chief Complaint: Chest pain, lower/upper back pain History of Present Illness: Presented with 73-year-old male patient chief complaint of lower/upper back pain on the right side times 3 weeks. Patient also states chest pain started 3-4 days ago. Patient did see his primary care doctor last week and had a x-ray of the spine which patient stated was negative. Patient states low back pain is located on the right lateral side, upper back pain is located around the scapular area, and chest pain is located on the lateral right side and radiates medially with movement of his head. Patient states the pain is worse with movement he does have relief if he lays completely flat. Patient also complained of pain radiating down the right leg which has been intermittent over the past 3 weeks. Patient states the pain increases throughout the day. Patient rates the low back pain 56 on pain scale , upper back pain 4-5 on pain scale, and rates chest pain 3 out of 10 on pain scale. Patient denies any urinary or bowel complications. Patient denies any recent falls or heavy lifting. Patient denies any fevers, shortness of breath, cough, sweating, nausea, or palpitations. Patient also denies any lower leg edema. Patient has history of hypertension, elevated cholesterol, gout, gastroesophageal reflux, and sleep apnea. Patient's father at the age of 47 with LA. Patient's mother at the age of 90 with congestive heart failure. Patient is a former smoker who quit smoking 23 years ago. Patient does admit to drinking 3-4 bottles of beer every weekend. Patient denies any recent travel. Patient admits to approximately 45 pound weight loss in the past 5-6 months due to weight watchers diet. Review of Systems Constitutional: Reports system reviewed and no additional complaints, except as docu and Reports weight loss (45 lb weight loss over 6 months. ) Eyes: Reports system reviewed and no additional complaints, except as docu and Reports requires corrective lenses Ears, Nose, Mouth, and Throat: Reports system reviewed and no additional complaints, except as docu Cardiovascular: Reports system reviewed and no additional complaints, except as docu and Reports chest pain Comments: Denies dyspnea and denies diaphoresis and denies palpitations Respiratory: Reports system reviewed and no additional complaints, except as docu Comments: Denies cough, denies dyspnea Gastrointestinal: Reports system reviewed and no additional complaints, except as docu Genitourinary: Reports system reviewed and no additional complaints, except as docu Musculoskeletal: Reports system reviewed and no additional complaints, except as docu, Reports back pain and Reports radiating pain into limb (Pain radiates down right leg) Neurologic: Reports system reviewed and no additional complaints, except as docu [facility] Medical History Medical History History of gastroesophageal reflux (GERD) (Acute) History of gout (Acute) History of high cholesterol (Acute) History of hypertension (Acute) History of sleep apnea (Acute) Surgical History Surgical History History of hernia repair (Acute) History of tonsillectomy (Acute) Family History Family History Father Myocardial infarction Mother CHF (congestive heart failure) Sister HTN (hypertension) Sister HTN (hypertension) Social History Social History Substance History: No History of Abuse Second Hand Smoke Exposure: No Smoking Status: Former smoker Tobacco Type: Cigarettes Packs Per Day: 2 Cigarettes Per Day: 40.0 Years Smoked: 36 Pack-Years: 72.00 Smoking End Date: Quit 23 years ago How Often Do You Have a Drink Containing Alcohol: 2 to 4 times a month Hx Recent Travel: No Recent Travel in [place] within the Last 8 Weeks: No Recent Out of Country Travel within the Last 8 Weeks: No Immunization History Tetanus Immunization: >5 Years Medications and Allergies Allergies Allergy/AdvReac Type Severity Reaction Status Date / Time No Known Allergies Allergy Verified 06/20/18 09:43 Home Medications Medication Instructions Recorded Confirmed Type allopurinol [Zyloprim] 300 mg PO QPM 06/20/18 06/20/18 History ascorbic acid (vitamin C) [Vitamin 500 mg PO DAILY 06/20/18 06/20/18 History C] aspirin 325 mg PO HS 06/20/18 06/20/18 History atorvastatin [Lipitor] 40 mg PO QPM 06/20/18 06/20/18 History carvedilol [Coreg] 3.125 mg PO BID 06/20/18 06/20/18 History multivitamin 1 tab PO DAILY 06/20/18 06/20/18 History olmesartan-hydrochlorothiazide 1 tab PO DAILY 06/20/18 06/20/18 History [Benicar HCT] pantoprazole [Protonix] 40 mg PO DAILY 06/20/18 06/20/18 History vitamin E 400 unit PO DAILY 06/20/18 06/20/18 History Active Medications: Active Medications Acetaminophen (Tylenol) 500 mg PO Q4H PRN PRN Reason: HEADACHE Hydrocodone Bitart/Acetaminophen ([place] 7.5/325) 1 tab PO Q4H PRN PRN Reason: PAIN SCALE 1 TO 7 Albuterol (Duoneb Neb (Prn)) 1 ampul NEB ONCE PRN PRN Reason: SHORTNESS OF BREATH/WHEEZING Allopurinol (Zyloprim) 300 mg PO QPM [facility] Aspirin (Aspirin) 325 mg PO DAILY [facility] Atorvastatin Calcium (Lipitor) 40 mg PO QPM [facility] Carvedilol (Coreg) 3.125 mg PO BID [facility] Morphine Sulfate (Morphine Inj) 2 mg IV.PUSH Q4H PRN PRN Reason: PAIN SCALE 8 TO 10 Nitroglycerin (Nitrostat Sl) 0.4 mg SL Q5M PRN PRN Reason: CHEST PAIN Non-Formulary Medication (Olmesartan-Hydrochlorothiazide [Benicar Hct]) 1 tab PO DAILY [facility] Ondansetron HCl (Zofran Inj) 4 mg IV.PUSH Q6H PRN PRN Reason: NAUSEA Pantoprazole Sodium (Protonix) 40 mg PO DAILY [facility] Sodium Chloride (Ns Flush) 2 ml IV.FLUSH UNSCH PRN PRN Reason: FLUSH AFTER USING IV ACCESS Last Admin: 06/20/18 10:00 Dose: 2 ml Sodium Chloride (Ns Flush) 2 ml IV.FLUSH BID [facility] Sodium Chloride (Ns Flush) 2 ml IV.FLUSH PRN PRN PRN Reason: FLUSH AFTER USING IV ACCESS Physical Exam Vital signs: Last Vital Signs Temp 98.0 F 06/20/18 09:36 Pulse 55 L 06/20/18 16:00 Resp 18 06/20/18 13:31 BP 148/76 H 06/20/18 13:10 Pulse Ox 96 06/20/18 17:03 Intake & Output 06/18/18 06/19/18 06/20/18 06/21/18 06:59 06:59 06:59 06:59 Intake Total 1000 / 1000 Balance 1000 / 1000 Weight 105.2 kg Constitutional no acute distress and cooperative Routine HEENT Exam Head: Present normocephalic Eye: Present PERRL ENT: Present mucous membranes moist Routine Neck Exam Present supple and full ROM Comments: No carotid bruits noted. Routine Respiratory Exam Present CTA bilaterally Routine Cardiovascular Exam Present RRR Comments: Denies any chest pain with palpitation. When patient turns his head to the right, patient has pain on the upper right lateral chest. Routine Abdominal Exam Present soft and normoactive bowel sounds Routine Extremities Exam Present full ROM, pulses intact and normal capillary refill Routine Back/Spine/Pelvis Exam Back/Spine: Present muscle spasm (right scapular area and right lateral lower back), pain with flexion, pain with lateral flexion and pain with rotation Comments: 2+ bilateral patellar reflexes Routine Skin Exam Present intact, dry and warm Routine Neurological Exam Present alert, oriented X3 and CN II-XII intact Results Labs CBC & Chem 7: 06/20/18 10:08 06/20/18 10:08 Imaging Impressions Chest X-Ray 06/20/18 09:45 CONCLUSION: The lungs are clear. Caprini VTE Risk Assessment Caprini VTE Risk Assessment: Moderate/High Risk (score >= 2) Caprini Risk Assessment Model: Point Value = 1 Point Value = 2 Point Value = 3 Point Value = 5 Age 41-60 Minor surgery BMI > 25 kg/m2 Swollen legs Varicose veins or History of unexplained or recurrent spontaneous Oral contraceptives or hormone replacement Sepsis (< 1 month) Serious lung disease, including pneumonia (< 1 month) Abnormal pulmonary function Acute myocardial infarction Congestive heart failure (< 1 month) History of inflammatory bowel disease Medical patient at bed rest Age 61-74 Arthroscopic surgery Major open surgery (> 45 min) Laparoscopic surgery (> 45 min) Malignancy Confined to bed (> 72 hours) Immobilizing plaster cast Central venous access Age >= 75 History of VTE Family history of VTE Factor V Leiden Prothrombin [id number] Lupus anticoagulant Anticardiolipin antibodies Elevated serum homocysteine Heparin-induced thrombocytopenia Other congenital or acquired thrombophilia Stroke (< 1 month) Elective arthroplasty Hip, pelvis, or leg fracture Acute spinal cord injury (< 1 month) Prophylaxis Regimen: Total Risk Factor Score Risk Level Prophylaxis Regimen 0-1 Low Early ambulation 2 Moderate Order ONE of the following: *Sequential Compression Device (SCD) *Heparin 5000 units SQ BID 3-4 Higher Order ONE of the following medications: *Heparin 5000 units SQ TID *Enoxaparin/Lovenox 40 mg SQ daily (WT < 150 kg, CrCl > 30 mL/min) *Enoxaparin/Lovenox 30 mg SQ daily (WT < 150 kg, CrCl > 10-29 mL/min) *Enoxaparin/Lovenox 30 mg SQ BID (WT < 150 kg, CrCl > 30 mL/min) AND/OR *Sequential Compression Device (SCD) 5 or more Highest Order ONE of the following medications: *Heparin 5000 units SQ TID (Preferred with Epidurals) *Enoxaparin/Lovenox 40 mg SQ daily (WT < 150 kg, CrCl > 30 mL/min) *Enoxaparin/Lovenox 30 mg SQ daily (WT < 150 kg, CrCl > 10-29 mL/min) *Enoxaparin/Lovenox 30 mg SQ BID (WT < 150 kg, CrCl > 30 mL/min) AND *Sequential Compression Device (SCD) Assessment and Plan Plan 73-year-old male patient chief complaint chest pain lower/upper back pain. Chest pain Risk factors include age, hypertension, family history, previous smoker Patient ruled out acute coronary event with negative serial troponins Personally reviewed EKG which showed sinus rhythm without any abnormalities to suggest cardiac event Myocardial perfusion study performed and indicated fixed defect, no signs of ischemia, low risk Start aspirin daily, nitroglycerin as needed Lumbar/Sacral strain/sprain Patient received outpatient imaging which resulted negative findings by primary care doctor Recommend supportive treatment with anti-inflammatories, moist heat, outpatient physical therapy, Start Flexeril 5 mg 3 times daily Continue outpatient follow-up Hypertension, gastroesophageal reflux, gout, high cholesterol, sleep apnea Continue home medications as prescribed is to bring home CPAP machine DVT Prevention Sequential compression devices Discharge Planning: Discharge home in stable condition Activity: Ad yesenia. Diet: Healthy heart diet Medication per medication reconciliation Follow-up with primary medical doctor in 1 week H&P: Quality VTE Deep Vein Thrombosis/Pulmonary Embolism Present on Admission: No
[2018-06-20] MEDS ORDERED: Allopurinol 300 MG Tablet PO SCH (18:00)
--- NOTE | 2018-06-20 18:37 | NM ---
EXAM DATE: 06/20/2018 6:32 PM EST AGE/SEX: 73 years / Male INDICATIONS:Angina. . Anterior chest pain. CLINICAL DATA: This is the patient's initial encounter. Patient reports that signs and symptoms have been present for 3 days and indicates a pain score of 2/10. MEDICAL/SURGICAL HISTORY: Gastroesophageal reflux disease. Hypertension. Hypercholesterolemia . Gout. Tonsillectomy. Hernia repair. COMPARISON: [facility], MYOCARDIAL PERF PHARM SPECT, 08/12/2016. . DOSE: 11.2 mCi Tc 99m Myoview at rest 35.0 mCi [id number] at stress 0.4 mg Lexiscan STRESS SYMPTOMS: None. EJECTION FRACTION: >70 % TECHNIQUE: The patient underwent pharmacologic stress with infusion of prescribed dose. Continuous ECG tracing was monitored during stress. Gated SPECT imaging was performed after stress and conventi onal SPECT imaging was performed at rest. The examination was performed on a SPECT/CT scanner, both attenuation and non-corrected datasets were reviewed. FINDINGS: Distribution: The maximum perfused segment at stress is in the septal wall. Perfusion Study: There is a moderate sized moderate severity posterior basal and inferior wall perf usion abnormality without definite evidence of redistribution. Gated Study: There are intact wall motion and wall thickening without hypokinetic or dyskinetic segm ents. The ejection fraction is calculated at >70%. RISK CATEGORY: Low (<1% Annual Mortality Rate) CONCLUSION: Fixed posterior basal and inferior perfusion abnormalities. No definite ischemia Electronically signed by: Micah Patel MD Board Certified Radiologist 06/20/2018 6:36 PM EST
[2018-06-20 18:53] VITALS: BP 168/76; RESP 20; TEMP 96.7
--- NOTE | 2018-06-20 20:54 | ECG ---
Date Performed: 06/20/2018 Time Performed: 09:56:28 PTAGE: 73 years EKG: SINUS BRADYCARDIA WITH MARKED SINUS ARRHYTHMIA INFERIOR MYOCARDIAL INFARCTION ABNORMAL ECG PREVIOUS TRACING : 08/11/2016 22.16 Since the previous tracing, no significant change noted DOCTOR: Kenji Ocampo Interpretating Date/Time 06/20/2018 20:53:00
[2018-06-21] MEDS ORDERED: Aspirin 325 MG Tablet PO SCH (09:00)
[2018-06-21] MEDS ORDERED: OLMESARTAN HYDROCHLOROTHIAZIDE PO SCH (09:00)
--- NOTE | 2018-06-21 10:44 | TR ---
Date Performed: 06/20/2018 Time Performed: 17:51:45 DOCTOR: Jovanni Barton DRUG LIST: CLINICAL HISTORY: CHEST PAIN REASON FOR TEST: Angina REASON FOR ENDING: OBSERVATION: CONCLUSION: Lexiscan stress test was performed under standard four minute protocol. Radionuclide was injected one minute prior to ending the test. No electrocardiographic abormalities were present to suggest ischemia. Nuclear imaging and interpretation are pending. COMMENTS:
--- NOTE | 2018-06-22 00:46 | ECG ---
Date Performed: 06/20/2018 Time Performed: 13:23:03 PTAGE: 73 years EKG: SINUS BRADYCARDIA INFERIOR MYOCARDIAL INFARCTION ABNORMAL ECG PREVIOUS TRACING : 06/20/2018 09.56 Since the previous tracing, no significant change noted DOCTOR: Pierre Leo Interpretating Date/Time 06/22/2018 00:44:46
--- NOTE | 2018-06-22 00:56 | ECG ---
Date Performed: 06/20/2018 Time Performed: 16:00:42 PTAGE: 73 years EKG: SINUS BRADYCARDIA INFERIOR MYOCARDIAL INFARCTION ABNORMAL ECG PREVIOUS TRACING : 06/20/2018 13.23 Since the previous tracing, no significant change noted DOCTOR: Pierre Leo Interpretating Date/Time 06/22/2018 00:55:37
== END 2018-06-20 20:03 | disposition home or self-care (01) ==
LOC: PHED 09:33 → PHEDA 09:33 → PH3 14:48
PROVIDERS: ADMIT Internal Medicine; ATTEND Internal Medicine
DX: Z82.49 Family history of ischemic heart disease and other diseases of the circulatory system; S39.012A Strain of muscle, fascia and tendon of lower back, initial encounter; R94.31 Abnormal electrocardiogram [ECG] [EKG]; M10.9 Gout, unspecified; G47.30 Sleep apnea, unspecified; K21.9 Gastro-esophageal reflux disease without esophagitis; E78.5 Hyperlipidemia, unspecified; E78.00 Pure hypercholesterolemia, unspecified; F17.210 Nicotine dependence, cigarettes, uncomplicated; I10 Essential (primary) hypertension; R07.89 Other chest pain
CPT/HCPCS: 71010; 71045; 78452; 80053; 82550; 84484; 85025; 93005; 93017; 96360; 99285; A9502; G0378; J2785; J7030; Q9969